=== PATIENT | male | born 1990 | race Native Hawaiian/Other Pacific Islander ===

== ENCOUNTER 2016-09-29 23:38 | Emergency (ER) | payer SELFPAY ==
[2016-09-29 23:57] VITALS: RESP 18; TEMP 98.8
[2016-09-30] MEDS ORDERED: Amoxicillin-Clav 875-125 mg Tab PO STA (01:04)
[2016-09-30] MEDS ORDERED: TDAP Vaccine 0.5 mL Syr IM ONE (01:05)
--- NOTE | 2016-09-30 01:05 | ED PDOC ---
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 Patient stated he accidentally puncture right ear while cleaning ear with q-tips. Patient denies dizziness, or abnormal gait. Denies other complains. (Joyce Mclaughlin) Past Medical History - Provider Review Nursing Documentation Reviewed: Yes - Psychiatric Hx Substance Use: No <Joyce Mclaughlin - Last Filed: 10/01/16 21:09> Family/Social History - Physician Review Nursing Documentation Reviewed: Yes Family/Social History: No Known Family HX Smoking Status: n Hx Alcohol Use: Yes Frequency of alcohol use: Socially Hx Substance Use: No <Joyce Mclaughlin P - Last Filed: 10/01/16 21:09> Allergies/Home Meds <Shabana,Matias - Last Filed: 09/30/16 01:53> <Joyce Mclaughlin - Last Filed: 10/01/16 21:09> Allergies/Adverse Reactions: Allergies No Known Allergies Allergy (Verified 09/29/16 23:56) Review of Systems - Review of Systems Constitutional: Normal. absent: Fatigue, Weight Change, Fevers Eyes: Normal ENT: Other ((+) right ear trauma with Q-tips) Respiratory: Normal Cardiovascular: Normal Gastrointestinal: Normal Genitourinary Male: Normal Musculoskeletal: Normal Skin: Normal Neurological: Normal Endocrine: Normal Hemo/Lymphatic: Normal Psychiatric: Normal <Joyce Mclaughlin - Last Filed: 10/01/16 21:09> Physical Exam Temperature: Afebrile Blood Pressure: Normal Pulse: Regular Respiratory Rate: Normal Appearance: Positive for: Well-Appearing, Non-Toxic, Comfortable Pain Distress: None Mental Status: Positive for: Alert and Oriented X 3 - Systems Exam Head: Present: Atraumatic, Normocephalic Pupils: Present: PERRL Extroacular Muscles: Present: EOMI Conjunctiva: Present: Normal Ears: No: NORMAL TM ((+) right TM is punctured. Trace dry blood seen in right ear canal. no actively bleeding. Patient denies ear tenderness. Left TM and ear are normal) Mouth: Present: Moist Mucous Membranes Neck: Present: Normal Range of Motion Upper Extremity: Present: Normal Inspection, Normal ROM Lower Extremity: Present: Normal Inspection, Normal ROM Neurological: Present: GCS=15, CN II-XII Intact, Speech Normal, Motor Func Grossly Intact, Normal Sensory Function, Normal Cerebellar Funct, Gait Normal, Memory Normal Skin: Present: Warm, Dry, Normal Color. No: Rashes Psychiatric: Present: Alert, Oriented x 3 <oJyce Mclaughlin - Last Filed: 10/01/16 21:09> Vital Signs Temp Pulse Resp BP Pulse Ox 09/30/16 01:30 60 18 116/72 99 09/29/16 23:51 98.8 F 61 18 122/80 98 Medical Decision Making <Matias Donald - Last Filed: 09/30/16 01:53> Re-evaluation Time: 01:24 Reassessment Condition: Re-examined, Improved <Joyce Mclaughlin - Last Filed: 10/01/16 21:09> ED Course and Treatment: 09/30/16 01:23 Patient is requesting a cheaper ABX since he does not have medical insurance. Re-evaluation. Patient feels better. Discussed results and plan with patient who expresses understanding. All questions answered and there is agreement with the plan to discharge home with instructions. Patient stable for discharge. Return if symptoms persist or worsen. (Joyce Mclaughlin) - Medication Orders Current Medication Orders: Discontinued Medications Amoxicillin (Amoxil 500 Mg Cap) 500 mg PO STAT STA PRN Reason: Protocol Stop: 09/30/16 01:39 Last Admin: 09/30/16 01:54 Dose: 500 mg Tetanus/Reduced Diphtheria/Acell Pertussis (Boostrix Vaccine Inj) 0.5 ml IM .ONCE ONE Stop: 09/30/16 01:06 Last Admin: 09/30/16 01:54 Dose: 0.5 ml - Procedure PROCEDURE NOTE (Text): 09/30/16 01:24 Right ear cotton ball patch ordered (Joyce Mclaughlin) - PA / [employer] / Resident Statement BYRON has reviewed & agrees with the documentation as recorded. <Matias Donald - Last Filed: 09/30/16 01:53> Disposition/Present on Arrival <Matias Donald - Last Filed: 09/30/16 01:53> - Present on Arrival Any Indicators Present on Arrival: No History of DVT/PE: No History of Uncontrolled Diabetes: No Urinary Catheter: No History of Decub. Ulcer: No History Surgical Site Infection Following: None - Disposition Have Diagnosis and Disposition been Completed?: Yes Disposition Time: :25 Patient Plan: Admission <Joyce Mclaughlin - Last Filed: 10/01/16 21:09> - Disposition Diagnosis: Puncture wound of tympanic membrane Disposition: HOME/ ROUTINE Condition: GOOD Discharge Instructions (ExitCare): Ruptured Eardrum (ED) Additional Instructions: Call ENT doctor tomorrow for follow up visit in 1-2 days. Do not allow water enter right ear. Take medication as instructed. Prescriptions: Amoxicillin [Amoxil 500 mg Cap] 500 mg PO TID #30 cap Referrals: Jonnie Barahona DO [[facility]] - [facility] [[facility]] - Follow up with primary [facility] [Outside] - Follow up with primary
[2016-09-30 02:01] VITALS: BP 116/72; PULSE 60; O2SAT 99
== END 2016-09-30 02:00 | disposition home or self-care (01) ==
LOC: ED 23:38
DX: S09.21XA Traumatic rupture of right ear drum, initial encounter (principal); X58.XXXA Exposure to other specified factors, initial encounter; Y93.E8 Activity, other personal hygiene; Z23 Encounter for immunization